=== PATIENT | female | born 1990 | race Caucasian/White ===

== ENCOUNTER 2016-08-13 21:42 | Emergency (ER) | payer MEDICAID ==
[~2016-08-13] VITALS: Ht 162.6 cm; Wt 104.3 kg
[2016-08-13] MEDS ORDERED: VITAFOL-OB+DHA1 EACH PO (21:57)
== END 2016-08-13 23:20 | disposition short-term general hospital (02) ==
LOC: ER 21:42 → ULTR 21:43 → ER 23:20
DX: O20.9 Hemorrhage in early pregnancy, unspecified (principal); O23.41 Unspecified infection of urinary tract in pregnancy, first trimester; Z3A.08 8 weeks gestation of pregnancy; Z88.2 Allergy status to sulfonamides; Z88.0 Allergy status to penicillin; Z88.8 Allergy status to other drugs, medicaments and biological substances; Z79.899 Other long term (current) drug therapy